=== PATIENT | male | born 1950 | race Hispanic/Latino ===

== ENCOUNTER 2022-05-20 09:16 | Inpatient (IN) | payer MEDICARE ==
[2022-05-20] MEDS ORDERED: LORazepam 2 MG/ML VIAL IV ONE (09:22)
[2022-05-20] MEDS ORDERED: SODIUM CHLORIDE 0.9% 1000 ML 1,000 ML IV ONE ×2 (10:06→13:23)
--- NOTE | 2022-05-20 10:12 | Emergency Department Report ---
ED Altered Mental Status HPI - General Chief Complaint: Altered Mental Status Stated Complaint: AMS Time Seen by Provider: 05/20/22 10:03 Source: EMS Mode of arrival: Stretcher Limitations: Altered Mental Status - History of Present Illness Initial Comments: Mr. Prieto was brought in by EMS with concern for altered mental status and likely seizure activity. EMS got a call that a friend find patient laying on the couch unresponsive. EMS notes it what is described as being seizure on presentation to the emergency room. Initially went to go to patient's home according to EMS he was trying to response to the question. Medication review noted that patient likely have history of high blood pressure taking lisinopril and also currently on trazodone. No other history is available at this point. MD Complaint: altered mental status - Related Data Allergies Allergy/AdvReac Type Severity Reaction Status Date / Time Unable to Assess Allergy Verified 05/20/22 09:22 ED Review of Systems ROS: Stated complaint: AMS Other details as noted in HPI Comment: All other systems reviewed and negative Neurological: confusion, other (Seizure) ED Physical Exam - General Limitations: Altered Mental Status General appearance: alert, in no apparent distress, postictal - Head Head exam: Present: normal inspection - Eye Eye exam: Present: normal appearance Pupils: Present: normal accommodation - ENT ENT exam: Present: normal exam, normal orophraynx, mucous membranes dry - Neck Neck exam: Present: normal inspection - Respiratory Respiratory exam: Present: normal lung sounds bilaterally. Absent: respiratory distress, accessory muscle use - Cardiovascular Cardiovascular Exam: Present: regular rate, normal rhythm, normal heart sounds - GI/Abdominal GI/Abdominal exam: Present: soft, normal bowel sounds. Absent: distended, tenderness - Extremities Exam Extremities exam: Present: normal inspection, normal capillary refill. Absent: tenderness, pedal edema - Back Exam Back exam: Absent: tenderness - Neurological Exam Neurological exam: Present: altered - Skin Skin exam: Present: warm. Absent: rash ED Course Vital Signs 05/20/22 05/20/22 05/20/22 09:19 09:30 09:35 Temperature 97.8 F Pulse Rate 80 81 Respiratory 16 13 15 Rate Blood Pressure Blood Pressure 110/72 [Right] O2 Sat by Pulse 97 96 97 Oximetry 05/20/22 05/20/22 05/20/22 09:41 09:45 10:01 Temperature Pulse Rate 65 64 59 L Respiratory 14 10 L Rate Blood Pressure 137/65 114/67 Blood Pressure [Right] O2 Sat by Pulse 99 99 Oximetry 05/20/22 05/20/22 05/20/22 10:15 10:31 10:45 Temperature Pulse Rate 60 55 L 67 Respiratory 12 10 L 14 Rate Blood Pressure 114/67 104/62 104/62 Blood Pressure [Right] O2 Sat by Pulse 99 99 98 Oximetry 05/20/22 05/20/22 05/20/22 11:07 11:15 11:31 Temperature Pulse Rate 53 L 60 50 L Respiratory 11 L 13 Rate Blood Pressure 104/62 104/62 110/53 Blood Pressure [Right] O2 Sat by Pulse Oximetry 05/20/22 05/20/22 05/20/22 11:45 12:01 12:15 Temperature Pulse Rate 49 L 48 L 48 L Respiratory 13 9 L 12 Rate Blood Pressure 110/53 113/54 113/54 Blood Pressure [Right] O2 Sat by Pulse Oximetry 05/20/22 05/20/22 05/20/22 12:31 12:45 13:01 Temperature Pulse Rate 48 L 57 L 63 Respiratory 12 8 L 10 L Rate Blood Pressure 116/56 116/56 116/56 Blood Pressure [Right] O2 Sat by Pulse 96 Oximetry 05/20/22 05/20/22 05/20/22 13:15 13:31 13:45 Temperature Pulse Rate 54 L 48 L 52 L Respiratory 12 12 14 Rate Blood Pressure 149/76 157/79 129/65 Blood Pressure [Right] O2 Sat by Pulse 99 100 100 Oximetry 05/20/22 14:01 Temperature Pulse Rate Respiratory 12 Rate Blood Pressure 148/74 Blood Pressure [Right] O2 Sat by Pulse Oximetry - Reevaluation(s) Reevaluation #1: 05/20/22 10:10 brought in with likely seizure or with AMS-- pt with very limited history -- evan l go ahead and order CT head to rule out intracranial abnormality--and order routine labs CBC, CMP and UA with lactic acid-- for any infectious or electrolytes abnormality- 05/20/22 10:31 05/20/22 10:33 Given 2 mg IM x 1 on presentation with like seizure but because this patient did not have history of seizure will hold given dilantin for stabilization until further labs resulted. Reevaluation #2: 05/20/22 13:19 Pt looks a little bit more alert at this time--He reports history of vertigo but no medication list. Reevaluation #3: 05/20/22 13:20 Noted with elevated lactic acid at 4.2 but no identified source of infection yet but UA still pending -- with concern for sepsis will start aggressive ivf hydration and antibiotics prophylactically--Van and Zosyn 05/20/22 13:21 Reevaluation #4: 05/20/22 13:46 Got a call from chemistry with improved Lactic acid from 4.1 not to 2.30 following that antibiotics and ivf ns -- will continue to look for likely source of infection as UA still pending at this point-- 05/20/22 14:02 Urinalysis noted to be within normal limits without urinary leukocytes or nitrates--this is likely not the source of infection if any--considering that this patient noticed with improvement after IV fluid hydration and antibiotics will consider admission to the hospitalist. Dr. Torres paged and was told that he would call back. - Consultations Consultation #1: 05/20/22 14:46 Dr Torres came in to the ED and evaluated patient and accept for further evaluation and treatment-- - Lab Data Result diagrams: 05/20/22 10:36 05/20/22 10:36 Lab Results 05/20/22 05/20/22 05/20/22 Range/Units 10:36 10:36 10:36 WBC 8.4 (4.5-11.0) K/mm3 RBC 3.65 (3.65-5.03) M/mm3 Hgb 12.1 (11.8-15.2) gm/dl Hct 35.6 (35.5-45.6) % MCV 98 H (84-94) fl MCH 33 H (28-32) pg MCHC 34 (32-34) % RDW 13.0 L (13.2-15.2) % Plt Count 79 L (140-440) K/mm3 Lymph % (Auto) 11.1 L (13.4-35.0) % [place] % (Auto) 4.6 (0.0-7.3) % Eos % (Auto) 2.5 (0.0-4.3) % Baso % (Auto) 0.7 (0.0-1.8) % Lymph # (Auto) 0.9 L (1.2-5.4) K/mm3 [place] # (Auto) 0.4 (0.0-0.8) K/mm3 Eos # (Auto) 0.2 (0.0-0.4) K/mm3 Baso # (Auto) 0.1 (0.0-0.1) K/mm3 Seg Neutrophils % 81.1 H (40.0-70.0) % Seg Neutrophils # 6.8 (1.8-7.7) K/mm3 PT 12.5 (12.2-14.9) Sec. INR 0.85 L (0.87-1.13) APTT 20.0 L (24.2-36.6) Sec. Sodium 135 L (137-145) mmol/L Potassium 4.0 (3.6-5.0) mmol/L Chloride 100.8 (98-107) mmol/L Carbon Dioxide 22 (22-30) mmol/L Anion Gap 16 mmol/L BUN 11 (9-20) mg/dL Creatinine 0.9 (0.8-1.3) mg/dL Estimated GFR > 60 ml/min BUN/Creatinine Ratio 12 % Glucose 112 H (75-100) mg/dL Lactic Acid (0.7-2.0) mmol/L Calcium 9.0 (8.4-10.2) mg/dL Total Bilirubin 0.30 (0.1-1.2) mg/dL AST 28 (5-40) units/L ALT 31 (7-56) units/L Alkaline Phosphatase 60 (35-129) units/L Total Protein 6.3 (6.3-8.2) g/dL Albumin 4.0 (3.9-5) g/dL Albumin/Globulin Ratio 1.7 % TSH (0.270-4.200) mlU/mL Free T4 (0.76-1.46) ng/dL Urine Color (Yellow) Urine Turbidity (Clear) Urine pH (5.0-7.0) Ur Specific [place] (1.003-1.030) Urine Protein (Negative) mg/dL Urine Glucose (UA) (Negative) mg/dL Urine Ketones (Negative) mg/dL Urine Blood (Negative) Urine Nitrite (Negative) Urine Bilirubin (Negative) Urine Urobilinogen (<2.0) mg/dL Ur Leukocyte Esterase (Negative) Urine WBC (Auto) (0.0-6.0) /HPF Urine RBC (Auto) (0.0-6.0) /HPF U Epithel Cells (Auto) (0-13.0) /HPF 05/20/22 05/20/22 05/20/22 Range/Units 10:36 10:36 12:52 WBC (4.5-11.0) K/mm3 RBC (3.65-5.03) M/mm3 Hgb (11.8-15.2) gm/dl Hct (35.5-45.6) % MCV (84-94) fl MCH (28-32) pg MCHC (32-34) % RDW (13.2-15.2) % Plt Count (140-440) K/mm3 Lymph % (Auto) (13.4-35.0) % [place] % (Auto) (0.0-7.3) % Eos % (Auto) (0.0-4.3) % Baso % (Auto) (0.0-1.8) % Lymph # (Auto) (1.2-5.4) K/mm3 [place] # (Auto) (0.0-0.8) K/mm3 Eos # (Auto) (0.0-0.4) K/mm3 Baso # (Auto) (0.0-0.1) K/mm3 Seg Neutrophils % (40.0-70.0) % Seg Neutrophils # (1.8-7.7) K/mm3 PT (12.2-14.9) Sec. INR (0.87-1.13) APTT (24.2-36.6) Sec. Sodium (137-145) mmol/L Potassium (3.6-5.0) mmol/L Chloride (98-107) mmol/L Carbon Dioxide (22-30) mmol/L Anion Gap mmol/L BUN (9-20) mg/dL Creatinine (0.8-1.3) mg/dL Estimated GFR ml/min BUN/Creatinine Ratio % Glucose (75-100) mg/dL Lactic Acid 4.10 H* 2.30 H* (0.7-2.0) mmol/L Calcium (8.4-10.2) mg/dL Total Bilirubin (0.1-1.2) mg/dL AST (5-40) units/L ALT (7-56) units/L Alkaline Phosphatase (35-129) units/L Total Protein (6.3-8.2) g/dL Albumin (3.9-5) g/dL Albumin/Globulin Ratio % TSH 2.440 (0.270-4.200) mlU/mL Free T4 1.19 (0.76-1.46) ng/dL Urine Color (Yellow) Urine Turbidity (Clear) Urine pH (5.0-7.0) Ur Specific [place] (1.003-1.030) Urine Protein (Negative) mg/dL Urine Glucose (UA) (Negative) mg/dL Urine Ketones (Negative) mg/dL Urine Blood (Negative) Urine Nitrite (Negative) Urine Bilirubin (Negative) Urine Urobilinogen (<2.0) mg/dL Ur Leukocyte Esterase (Negative) Urine WBC (Auto) (0.0-6.0) /HPF Urine RBC (Auto) (0.0-6.0) /HPF U Epithel Cells (Auto) (0-13.0) /HPF / Range/Units 13:39 WBC (4.5-11.0) K/mm3 RBC (3.65-5.03) M/mm3 Hgb (11.8-15.2) gm/dl Hct (35.5-45.6) % MCV (84-94) fl MCH (28-32) pg MCHC (32-34) % RDW (13.2-15.2) % Plt Count (140-440) K/mm3 Lymph % (Auto) (13.4-35.0) % [place] % (Auto) (0.0-7.3) % Eos % (Auto) (0.0-4.3) % Baso % (Auto) (0.0-1.8) % Lymph # (Auto) (1.2-5.4) K/mm3 [place] # (Auto) (0.0-0.8) K/mm3 Eos # (Auto) (0.0-0.4) K/mm3 Baso # (Auto) (0.0-0.1) K/mm3 Seg Neutrophils % (40.0-70.0) % Seg Neutrophils # (1.8-7.7) K/mm3 PT (12.2-14.9) Sec. INR (0.87-1.13) APTT (24.2-36.6) Sec. Sodium (137-145) mmol/L Potassium (3.6-5.0) mmol/L Chloride (98-107) mmol/L Carbon Dioxide (22-30) mmol/L Anion Gap mmol/L BUN (9-20) mg/dL Creatinine (0.8-1.3) mg/dL Estimated GFR ml/min BUN/Creatinine Ratio % Glucose (75-100) mg/dL Lactic Acid (0.7-2.0) mmol/L Calcium (8.4-10.2) mg/dL Total Bilirubin (0.1-1.2) mg/dL AST (5-40) units/L ALT (7-56) units/L Alkaline Phosphatase (35-129) units/L Total Protein (6.3-8.2) g/dL Albumin (3.9-5) g/dL Albumin/Globulin Ratio % TSH (0.270-4.200) mlU/mL Free T4 (0.76-1.46) ng/dL Urine Color Yellow (Yellow) Urine Turbidity Clear (Clear) Urine pH 7.0 (5.0-7.0) Ur Specific [place] 1.013 (1.003-1.030) Urine Protein 30 mg/dl (Negative) mg/dL Urine Glucose (UA) Neg (Negative) mg/dL Urine Ketones Neg (Negative) mg/dL Urine Blood Neg (Negative) Urine Nitrite Neg (Negative) Urine Bilirubin Neg (Negative) Urine Urobilinogen < 2.0 (<2.0) mg/dL Ur Leukocyte Esterase Neg (Negative) Urine WBC (Auto) 1.0 (0.0-6.0) /HPF Urine RBC (Auto) < 1.0 (0.0-6.0) /HPF U Epithel Cells (Auto) < 1.0 (0-13.0) /HPF - EKG Data -: EKG Interpreted by Oh EKG shows normal: sinus rhythm Rate: normal 05/20/22 10:35 Noted with normal sinus rhythm at a rate of 72 bpm, with possible LVH and no ST elevation or depression in this abnormal ECG. - Radiology Data CT HEAD WITHOUT CONTRAST INDICATION / CLINICAL INFORMATION: AMS/seizure. TECHNIQUE: All CT scans at this location are performed using CT dose reduction for ALARA by means of automated exposure control. COMPARISON: None available. FINDINGS: HEMORRHAGE: None. EXTRA-AXIAL SPACES: Moderately prominent likely related to cortical atrophy. VENTRICULAR SYSTEM: Normal in size and morphology for the patient's age. CEREBRAL PARENCHYMA: No significant abnormality. No acute territorial infarct. There is decreased attenuation in the periventricular white matter characteristic of microvascular ischemic change. MIDLINE SHIFT / HERNIATION: None. CEREBELLUM / BRAINSTEM: No significant abnormality. ORBITS: Normal as visualized. SOFT TISSUES: No significant abnormality. SKULL: No significant abnormality. PARANASAL SINUSES / MASTOID AIR CELLS: Normal as visualized. ADDITIONAL FINDINGS: None. IMPRESSION: 1. No acute intracranial abnormality. No intracranial hemorrhage. - Medical Decision Making Here with AMS with limited - Differential Diagnosis CVA, Seizure, Sepsis, UTI, Pneumonia Critical Care Time: Yes (120) Critical care time in (mins) excluding proc time.: 120 Critical care attestation.: If time is entered above; I have spent that time in minutes in the direct care of this critically ill patient, excluding procedure time. This patient brought in with AMS and with possible seizure and due to high probability of clinically significant, life threatening deterioration, this patient required my highest level of preparedness to intervene emergently and I personally spent this critical care time directly and personally managing this patient. This critical care time included obtaining a history; examining this patient; pulse oximetry ; ordering and review of studies ; arranging urgent treatment with development of a management plan ; evaluation of patient's response to treatment ; frequent reassessment ; and, discussion with other providers. This critical care time was performed to assess and manage the high probability of imminent, life-threatening deterioration that could result in multiple organ damage if not done in a timely fashion. pt started with prophylactic antibiotics with aggressive IV fluids for possible sepsis-- Critical Care Time: 120 ED Disposition Clinical Impression: Seizure AMS (altered mental status) Qualifiers: Altered mental status type: unspecified Qualified Code(s): R41.82 - Altered mental status, unspecified Sepsis Qualifiers: Sepsis type: sepsis due to unspecified organism Sepsis acute organ dysfunction status: unspecified Qualified Code(s): A41.9 - Sepsis, unspecified organism Disposition: 09 ADMITTED INPATIENT Is pt being admited?: Yes Does the pt Need Aspirin: No Condition: Stable Time of Disposition: 14:48 (Dr Torres )
[2022-05-20 11:16] LABS: Basophils # (Auto) 0.1 K/mm3 (0.0-0.1); Basophils % (Auto) 0.7 % (0.0-1.8); Eosinophils # (Auto) 0.2 K/mm3 (0.0-0.4); Eosinophils % (Auto) 2.5 % (0.0-4.3); Hematocrit 35.6 % (35.5-45.6); Hemoglobin 12.1 gm/dl (11.8-15.2); Lymphocytes # (Auto) 0.9 K/mm3 (1.2-5.4); Lymphocytes % (Auto) 11.1 % (13.4-35.0); Mean Corpuscular HGB Conc 34 % (32-34); Mean Corpuscular Volume 98 fl (84-94); Monocytes # (Auto) 0.4 K/mm3 (0.0-0.8); Monocytes % (Auto) 4.6 % (0.0-7.3); Red Blood Count 3.65 M/mm3 (3.65-5.03)
[2022-05-20 11:25] LABS: Alanine Aminotransferase 31 units/L (7-56); BUN/Creatinine Ratio 12; Blood Urea Nitrogen 11 mg/dL (9-20); Hemolysis Index 52; INR 0.85 (0.87-1.13)
[2022-05-20 11:42] LABS: Platelet Count 79 K/mm3 (140-440)
--- NOTE | 2022-05-20 11:42 | Cat Scan Report ---
CT HEAD WITHOUT CONTRAST INDICATION / CLINICAL INFORMATION: AMS/seizure. TECHNIQUE: All CT scans at this location are performed using CT dose reduction for ALARA by means of automated exposure control. COMPARISON: None available. FINDINGS: HEMORRHAGE: None. EXTRA-AXIAL SPACES: Moderately prominent likely related to cortical atrophy. VENTRICULAR SYSTEM: Normal in size and morphology for the patient's age. CEREBRAL PARENCHYMA: No significant abnormality. No acute territorial infarct. There is decreased att enuation in the periventricular white matter characteristic of microvascular ischemic change. MIDLINE SHIFT / HERNIATION: None. CEREBELLUM / BRAINSTEM: No significant abnormality. ORBITS: Normal as visualized. SOFT TISSUES: No significant abnormality. SKULL: No significant abnormality. PARANASAL SINUSES / MASTOID AIR CELLS: Normal as visualized. ADDITIONAL FINDINGS: None. IMPRESSION: 1. No acute intracranial abnormality. No intracranial hemorrhage. Signer Name: Jj Schaeffer MD Signed: 05/20/2022 11:38 AM Workstation Name: [id number]
[2022-05-20 12:07] LABS: Free T4 (Free Thyroxine) 1.19 ng/dL (0.76-1.46)
[2022-05-20] MEDS ORDERED: VANCOMYCIN/NS 1 GM/250 ML 1 GM/250 ML BAG IV ONE (13:22)
[2022-05-20] MEDS ORDERED: PIPERACILLIN/TAZOBACTAM 3.375 3.375 GM/50 ML BAG IV ONE (13:23)
[2022-05-20 13:50] LABS: Bilirubin,Urine NEG (Negative); Blood,Urine NEG (Negative); Color,Urine Yellow (Yellow); Urobilinogen,Urine < 2.0 mg/dL (<2.0)
[2022-05-20 13:51] LABS: RBC,Urine < 1.0 /HPF (0.0-6.0)
[2022-05-20] MEDS ORDERED: ACETAMINOPHEN 325 MG TAB PO PRN (17:43)
[2022-05-20] MEDS ORDERED: ONDANSETRON 4 MG/2 ML INJ IV PRN (17:43)
[2022-05-20] MEDS ORDERED: MORPHINE 2 MG/1 ML INJ IV PRN (17:43)
--- NOTE | 2022-05-20 17:43 | History and Physical Report ---
History of Present Illness Date of examination: 05/20/22 Date of admission: 05/20/2022 Chief complaint: Seizures and altered mental status since a.m. History of present illness: 72-year-old male brought in by EMS for altered mental status and seizure-like activity. Patient is from [facility]. Patient has an ankle for the last 3 months for treatment of EtOH dependence. Patient has been alcohol free for 4 months. From a.m. patient has been very confused and having seizure-like activity. Generalized tonic-clonic seizures. Patient was with altered sensorium during ED physician exam. During my exam patient was more alert and oriented and able to answer questions. Patient gave me his medication bottles and history. No prior seizures. No fever or chills. Initially patient was admitted as a Jonny Ramirez. Later on registration changed his name and date of and his address etc. Past History Past Medical History: hypertension, hyperlipidemia, other (Depression, EtOH dependence) Past Surgical History: No surgical history Social history: Lives alone (Lives in [facility]), other (EtOH dependence ~4 months ago) Family history: hypertension Medications and Allergies Allergies Allergy/AdvReac Type Severity Reaction Status Date / Time Unable to Assess Allergy Verified 05/20/22 09:22 Review of Systems All systems: negative Constitutional: no weight loss, no weight gain, no fever, no chills Ears, nose, mouth and throat: no ear pain, no ear discharge, no tinnitis, no decreased hearing Cardiovascular: no chest pain, no orthopnea, no palpitations, no rapid/irregular heart beat, no edema, no syncope, no lightheadedness, no shortness of breath Respiratory: no cough, no cough with sputum, no excessive sputum, no hemoptysis, no shortness of breath, no dyspnea on exertion Gastrointestinal: no abdominal pain, no nausea, no vomiting, no diarrhea, no constipation, no change in bowel habits, no hematemesis, no coffee ground emesis Genitourinary Male: no dysuria, no hematuria, no flank pain, no discharge, no urinary frequency, no urinary hesitancy Rectal: no pain Musculoskeletal: no neck stiffness, no neck pain, no shooting arm pain, no arm numbness/tingling, no low back pain, no shooting leg pain Integumentary: no rash, no pruritis, no redness, no sores Neurological: seizures Psychiatric: anxiety, depression, no change in appetite, no change in libido, no suicidal ideation, no disorientation, no hallucinations Endocrine: no cold intolerance, no heat intolerance, no polyphagia, no excessive thirst Hematologic/Lymphatic: no easy bruising, no easy bleeding Allergic/Immunologic: no urticaria, no allergic rhinitis, no wheezing Exam - Constitutional Vitals: Temp Pulse Resp BP Pulse Ox 97.8 F 52 L 11 L 111/62 97 05/20/22 09:19 05/20/22 13:45 05/20/22 15:01 05/20/22 15:01 05/20/22 15:01 General appearance: Present: no acute distress, well-nourished - EENT Eyes: Present: PERRL ENT: hearing intact, clear oral mucosa - Neck Neck: Present: supple, normal ROM - Respiratory Respiratory effort: normal Respiratory: bilateral: CTA - Cardiovascular Heart rate: 78 Rhythm: regular Heart Sounds: Present: S1 & S2. Absent: rub, click - Extremities Extremities: pulses symmetrical, No edema Peripheral Pulses: within normal limits - Abdominal General gastrointestinal: Present: soft, non-tender, non-distended, normal bowel sounds Male genitourinary: Present: normal - Integumentary Integumentary: Present: clear, warm, dry - Musculoskeletal Musculoskeletal: gait normal, strength equal bilaterally - Psychiatric Psychiatric: appropriate mood/affect, intact judgment & insight - Neurologic Neurologic: CNII-XII intact, moves all extremities HEART Score - HEART Score History: Slightly suspicious Risk factors: 1-2 risk factors Troponin: < normal limit - Critical Actions Critical Actions: 0-3 pts:0.9-1.7%risk of adverse cardiac event.Candidate for discharge Results - Labs CBC & Chem 7: 05/21/22 05:18 05/21/22 05:18 Labs: Laboratory Last Values WBC 8.4 K/mm3 (4.5-11.0) 05/20/22 10:36 RBC 3.65 M/mm3 (3.65-5.03) 05/20/22 10:36 Hgb 12.1 gm/dl (11.8-15.2) 05/20/22 10:36 Hct 35.6 % (35.5-45.6) 05/20/22 10:36 MCV 98 fl (84-94) H 05/20/22 10:36 MCH 33 pg (28-32) H 05/20/22 10:36 MCHC 34 % (32-34) 05/20/22 10:36 RDW 13.0 % (13.2-15.2) L 05/20/22 10:36 Plt Count 79 K/mm3 (140-440) L 05/20/22 10:36 Lymph % (Auto) 11.1 % (13.4-35.0) L 05/20/22 10:36 [place] % (Auto) 4.6 % (0.0-7.3) 05/20/22 10:36 Eos % (Auto) 2.5 % (0.0-4.3) 05/20/22 10:36 Baso % (Auto) 0.7 % (0.0-1.8) 05/20/22 10:36 Lymph # (Auto) 0.9 K/mm3 (1.2-5.4) L 05/20/22 10:36 [place] # (Auto) 0.4 K/mm3 (0.0-0.8) 05/20/22 10:36 Eos # (Auto) 0.2 K/mm3 (0.0-0.4) 05/20/22 10:36 Baso # (Auto) 0.1 K/mm3 (0.0-0.1) 05/20/22 10:36 Seg Neutrophils % 81.1 % (40.0-70.0) H 05/20/22 10:36 Seg Neutrophils # 6.8 K/mm3 (1.8-7.7) 05/20/22 10:36 PT 12.5 Sec. (12.2-14.9) 05/20/22 10:36 INR 0.85 (0.87-1.13) L 05/20/22 10:36 APTT 20.0 Sec. (24.2-36.6) L 05/20/22 10:36 Sodium 135 mmol/L (137-145) L 05/20/22 10:36 Potassium 4.0 mmol/L (3.6-5.0) 05/20/22 10:36 Chloride 100.8 mmol/L (98-107) 05/20/22 10:36 Carbon Dioxide 22 mmol/L (22-30) 05/20/22 10:36 Anion Gap 16 mmol/L 05/20/22 10:36 BUN 11 mg/dL (9-20) 05/20/22 10:36 Creatinine 0.9 mg/dL (0.8-1.3) 05/20/22 10:36 Estimated GFR > 60 ml/min 05/20/22 10:36 BUN/Creatinine Ratio 12 % 05/20/22 10:36 Glucose 112 mg/dL (75-100) H 05/20/22 10:36 Lactic Acid 2.30 mmol/L (0.7-2.0) H* 05/20/22 12:52 Calcium 9.0 mg/dL (8.4-10.2) 05/20/22 10:36 Total Bilirubin 0.30 mg/dL (0.1-1.2) 05/20/22 10:36 AST 28 units/L (5-40) 05/20/22 10:36 ALT 31 units/L (7-56) 05/20/22 10:36 Alkaline Phosphatase 60 units/L (35-129) 05/20/22 10:36 Total Protein 6.3 g/dL (6.3-8.2) 05/20/22 10:36 Albumin 4.0 g/dL (3.9-5) 05/20/22 10:36 Albumin/Globulin Ratio 1.7 % 05/20/22 10:36 TSH 2.440 mlU/mL (0.270-4.200) 05/20/22 10:36 Free T4 1.19 ng/dL (0.76-1.46) 05/20/22 10:36 Urine Color Yellow (Yellow) 05/20/22 13:39 Urine Turbidity Clear (Clear) 05/20/22 13:39 Urine pH 7.0 (5.0-7.0) 05/20/22 13:39 Ur Specific [place] 1.013 (1.003-1.030) 05/20/22 13:39 Urine Protein 30 mg/dl mg/dL (Negative) 05/20/22 13:39 Urine Glucose (UA) Neg mg/dL (Negative) 05/20/22 13:39 Urine Ketones Neg mg/dL (Negative) 05/20/22 13:39 Urine Blood Neg (Negative) 05/20/22 13:39 Urine Nitrite Neg (Negative) 05/20/22 13:39 Urine Bilirubin Neg (Negative) 05/20/22 13:39 Urine Urobilinogen < 2.0 mg/dL (<2.0) 05/20/22 13:39 Ur Leukocyte Esterase Neg (Negative) 05/20/22 13:39 Urine WBC (Auto) 1.0 /HPF (0.0-6.0) 05/20/22 13:39 Urine RBC (Auto) < 1.0 /HPF (0.0-6.0) 05/20/22 13:39 U Epithel Cells (Auto) < 1.0 /HPF (0-13.0) 05/20/22 13:39 Short CBC 05/20/22 05/21/22 Range/Units 10:36 05:18 WBC 8.4 10.7 (4.5-11.0) K/mm3 Hgb 12.1 13.3 (11.8-15.2) gm/dl Hct 35.6 40.1 (35.5-45.6) % Plt Count 79 L 181 D (140-440) K/mm3 BMP 05/20/22 05/21/22 10:36 05:18 Sodium 135 L 142 D Potassium 4.0 3.7 Chloride 100.8 108.0 H Carbon Dioxide 22 22 BUN 11 9 Creatinine 0.9 0.7 L Glucose 112 H 122 H Calcium 9.0 8.9 Liver Function 05/20/22 05/21/22 Range/Units 10:36 05:18 Total Bilirubin 0.30 0.50 (0.1-1.2) mg/dL AST 28 22 (5-40) units/L ALT 31 25 (7-56) units/L Alkaline Phosphatase 60 61 (35-129) units/L Albumin 4.0 3.8 L (3.9-5) g/dL Urine 05/20/22 Range/Units 13:39 Urine Color Yellow (Yellow) Urine pH 7.0 (5.0-7.0) Ur Specific [place] 1.013 (1.003-1.030) Urine Protein 30 mg/dl (Negative) mg/dL Urine Glucose (UA) Neg (Negative) mg/dL - Imaging and Cardiology CT Scan - head: report reviewed Imaging and Cardiology: Head CT No acute intracranial abnormality no intracranial hemorrhage Assessment and Plan Advance Directives: Yes (Full code) VTE prophylaxis?: Chemical Plan of care discussed with patient/family: Yes - Patient Problems (1) Acute encephalopathy Current Visit: Yes Status: Acute Plan to address problem: Secondary to possible generalized tonic clonic seizures IV Keppra started Patient became more alert and oriented over the last 6 hours Neurology consult requested (2) New onset seizure Current Visit: Yes Status: Acute Plan to address problem: Patient initiated on IV Keppra (3) EtOH dependence Current Visit: Yes Status: Acute Qualifiers: Substance use status: in remission Qualified Code(s): F10.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, in remission Plan to address problem: Patient apparently off alcohol for 4 months Will start CIWA protocol if necessary (4) Hypertension Current Visit: Yes Status: Chronic Qualifiers: Hypertension type: primary hypertension Qualified Code(s): I10 - Essential (primary) hypertension Plan to address problem: Continue lisinopril 20 mg once a day (5) Hyperlipidemia Current Visit: Yes Status: Chronic Qualifiers: Hyperlipidemia type: mixed hyperlipidemia Qualified Code(s): E78.2 - Mixed hyperlipidemia Plan to address problem: Continuous Lipitor (6) Depression Current Visit: Yes Status: Chronic Qualifiers: Depression Type: unspecified Qualified Code(s): F32.A - Depression, unspecified Plan to address problem: Continue trazodone (7) DVT prophylaxis Current Visit: Yes Status: Acute Plan to address problem: On anticoagulation GI prophylaxis (8) Advance care planning Current Visit: Yes Status: Acute Plan to address problem: Disease education conducted, care plan discussed, palpable diagnosis discussed prognosis discussed and patient acknowledged understanding with care plan. +30 minutes.
[2022-05-20] MEDS: D5W/0.9% NACL 1,000 ML IV SCH (18:21)
[2022-05-20] MEDS: levETIRAcetam 750 MG in DEXTROSE 5% IN WATER 100 ML IV SCH (19:36)
[2022-05-20] MEDS: LISINOPRIL 20 MG TAB PO SCH (19:36)
[2022-05-20] MEDS: FOLIC ACID 1 MG TAB PO SCH (19:36)
[2022-05-21] MEDS: levETIRAcetam 750 MG in DEXTROSE 5% IN WATER 100 ML IV SCH ×3 (00:06→22:04)
[2022-05-21] MEDS: D5W/0.9% NACL 1,000 ML IV SCH ×2 (00:15→17:28)
[2022-05-21] MEDS: traZODone 50 MG TAB PO SCH ×2 (00:16→21:57)
[2022-05-21] MEDS: HEPARIN 5,000 UNIT/1 ML VIAL SUB-Q SCH ×3 (00:16→21:58)
[2022-05-21] MEDS: FAMOTIDINE 20 MG/2 ML INJ IV SCH ×2 (00:17→10:10)
[2022-05-21 06:05] LABS: Basophils # (Auto) 0.1 K/mm3 (0.0-0.1); Basophils % (Auto) 1.1 % (0.0-1.8); Eosinophils # (Auto) 0.3 K/mm3 (0.0-0.4); Eosinophils % (Auto) 2.8 % (0.0-4.3); Hematocrit 40.1 % (35.5-45.6); Hemoglobin 13.3 gm/dl (11.8-15.2); Lymphocytes # (Auto) 1.7 K/mm3 (1.2-5.4); Lymphocytes % (Auto) 15.8 % (13.4-35.0); Mean Corpuscular HGB Conc 33 % (32-34); Mean Corpuscular Volume 98 fl (84-94); Monocytes # (Auto) 0.5 K/mm3 (0.0-0.8); Monocytes % (Auto) 4.8 % (0.0-7.3); Red Blood Count 4.08 M/mm3 (3.65-5.03)
[2022-05-21 06:29] LABS: Alanine Aminotransferase 25 units/L (7-56); Albumin 3.8 g/dL (3.9-5); Blood Urea Nitrogen 9 mg/dL (9-20); Calcium 8.9 mg/dL (8.4-10.2); Hemolysis Index 58
[2022-05-21 06:30] LABS: BUN/Creatinine Ratio 13
[2022-05-21 06:31] LABS: Platelet Count 181 K/mm3 (140-440)
[2022-05-21] MEDS: FOLIC ACID 1 MG TAB PO SCH (10:10)
--- NOTE | 2022-05-21 16:21 | Consultation ---
History of Present Illness Consult date: 05/21/22 Reason for Consult: Blank History of present illness: Mr. Prieto was brought in by EMS with concern for altered mental status and likely seizure activity. EMS got a call that a friend find patient laying on the couch unresponsive. EMS notes it what is described as being seizure on presentation to the emergency room. Initially went to go to patient's home according to EMS he was trying to response to the question. Medication review n oted that patient likely have history of high blood pressure taking lisinopril and also currently on trazodone. No other history is available at this point. The patient is alert , the patient reports no issues. Past History Past Medical History: hypertension, hyperlipidemia, other (Depression, EtOH dependence) Past Surgical History: No surgical history Social history: Lives alone (Lives in [place] [facility]), other (EtOH dependence ~4 months ago) Family history: hypertension Medications and Allergies Allergies Allergy/AdvReac Type Severity Reaction Status Date / Time Unable to Assess Allergy Verified 05/20/22 09:22 Active Meds: Active Medications Acetaminophen (Acetaminophen 325 Mg Tab) 650 mg PO Q4H PRN PRN Reason: Pain MILD(1-3)/Fever >100.5/FINE Atorvastatin Calcium (Atorvastatin 40 Mg Tab) 40 mg PO QHS [facility] Last Admin: 05/21/22 00:16 Dose: 40 mg Famotidine (Famotidine 20 Mg Tab) 20 mg PO BID [place] Folic Acid (Folic Acid 1 Mg Tab) 1 mg PO QDAY [facility] Last Admin: 05/21/22 10:10 Dose: 1 mg Heparin Sodium (Porcine) (Heparin 5,000 Unit/1 Ml Vial) 5,000 unit SUB-Q Q12HR [place] Last Admin: 05/21/22 10:10 Dose: 5,000 unit Dextrose/Sodium Chloride (D5ns) 1,000 mls @ 100 mls/hr IV DIRECT [facility] Last Admin: 05/21/22 00:15 Dose: 100 mls/hr Levetiracetam 750 mg/ Dextrose 107.5 mls @ 400 mls/hr IV Q12HR [place] Last Admin: 05/21/22 10:11 Dose: 400 mls/hr Lisinopril (Lisinopril 20 Mg Tab) 20 mg PO Q24H [facility] Last Admin: 05/20/22 19:36 Dose: 20 mg Morphine Sulfate (Morphine 2 Mg/1 Ml Inj) 2 mg IV Q4H PRN PRN Reason: Pain, Moderate (4-6) Last Admin: 05/20/22 18:22 Dose: 2 mg Ondansetron HCl (Ondansetron 4 Mg/2 Ml Inj) 4 mg IV Q8H PRN PRN Reason: Nausea And Vomiting Sodium Chloride (Sodium Chloride 0.9% 10 Ml Flush Syringe) 10 ml IV BID [facility] Last Admin: 05/21/22 10:13 Dose: 10 ml Sodium Chloride (Sodium Chloride 0.9% 10 Ml Flush Syringe) 10 ml IV PRN PRN PRN Reason: LINE FLUSH Trazodone HCl (Trazodone 50 Mg Tab) 100 mg PO QHS [facility] Last Admin: 05/21/22 00:16 Dose: 100 mg Physical Examination - Vital Signs Vital Signs: Vital Signs Temp Pulse Resp BP Pulse Ox 97.8 F 80 16 110/72 97 05/20/22 09:19 05/20/22 09:19 05/20/22 09:19 05/20/22 09:19 05/20/22 09:19 - Physical Exam Narrative exam: The patient is alert , responsives seem that the patient is confused, moves all 4 extremity . Results - Laboratory Findings CBC and BMP: 05/21/22 05:18 05/21/22 05:18 Abnormal Lab Findings: Abnormal Labs 05/20/22 05/20/22 05/20/22 10:36 10:36 10:36 MCV 98 H MCH 33 H RDW 13.0 L Plt Count 79 L Lymph % (Auto) 11.1 L Lymph # (Auto) 0.9 L Seg Neutrophils % 81.1 H Seg Neutrophils # INR 0.85 L APTT 20.0 L Sodium 135 L Chloride Creatinine Glucose 112 H Lactic Acid Albumin 05/20/22 05/20/22 05/21/22 10:36 12:52 05:18 MCV 98 H MCH 33 H RDW 13.0 L Plt Count Lymph % (Auto) Lymph # (Auto) Seg Neutrophils % 75.5 H Seg Neutrophils # 8.1 H INR APTT Sodium Chloride Creatinine Glucose Lactic Acid 4.10 H* 2.30 H* Albumin 05/21/22 05:18 MCV MCH RDW Plt Count Lymph % (Auto) Lymph # (Auto) Seg Neutrophils % Seg Neutrophils # INR APTT Sodium Chloride 108.0 H Creatinine 0.7 L Glucose 122 H Lactic Acid Albumin 3.8 L Assessment and Plan 1. ? New Onset Seizure / Acute Confusional State - Needs Further Evaluation . 2. MRI Brain no contrast 3. EEG in hospital 4. Consider Low Dose Keppra 250 mg 1 tab BID . 5. No driving for 6 months . Follow up in am Dr. Deluna
[2022-05-21] MEDS: LISINOPRIL 20 MG TAB PO SCH (17:28)
--- NOTE | 2022-05-21 19:28 | Progress Note ---
Assessment and Plan Assessment and plan: Advance Directives: Yes (Full code) VTE prophylaxis?: Chemical Plan of care discussed with patient/family: Yes - Patient Problems (1) Acute encephalopathy Secondary to possible generalized tonic clonic seizures IV Keppra started Patient became more alert and oriented over the last 6 hours Neurology consult requested (2) New onset seizure Patient initiated on IV Keppra Seizure precautions, MRI brain, EEG Do not drive until cleared by neurology or primary care physician Partly probably alcohol related (3) EtOH dependence Patient apparently off alcohol for 4 months Will start CIWA protocol if necessary (4) Hypertension Continue lisinopril 20 mg once a day (5) Hyperlipidemia Continuous Lipitor (6) Depression Continue trazodone (7) DVT prophylaxis On anticoagulation GI prophylaxis (8) Advance care planning Disease education conducted, care plan discussed, palpable diagnosis discussed prognosis discussed and patient acknowledged understanding with care plan. +30 minutes. Closely monitor the patient and adjust the management as needed Follow neuro evaluation and recommendations Follow EEG and MRI Physical therapy and Occupational Therapy Possible placement if no improvement Plan of care reviewed with the patient his nurse and case management History Interval history: Have seen and examined the patient at the bedside Patient's chart and medications reviewed Patient was admitted with altered level of consciousness and seizure episode Patient did not have any new episodes of seizures However patient is more alert and awake and confused at times Vital signs noted CT head without contrast no acute abnormality Hospitalist Physical - Constitutional Vitals: Temp Pulse Resp BP Pulse Ox 97 F L 56 L 20 144/71 98 05/21/22 18:36 05/21/22 18:36 05/21/22 18:36 05/21/22 18:36 05/21/22 18:36 General appearance: Present: no acute distress, well-nourished - EENT Eyes: Present: PERRL, EOM intact - Neck Neck: Present: supple, normal ROM - Respiratory Respiratory effort: normal Respiratory: bilateral: diminished, negative: rales, rhonchi, wheezing - Cardiovascular Rhythm: regular Heart Sounds: Present: S1 & S2 - Extremities Extremities: no ischemia, No edema - Abdominal General gastrointestinal: soft, non-tender, non-distended, normal bowel sounds - Integumentary Integumentary: Present: clear, warm - Psychiatric Psychiatric: appropriate mood/affect, cooperative - Neurologic Neurologic: moves all extremities HEART Score - HEART Score Risk factors: 1-2 risk factors Troponin: < normal limit - Critical Actions Critical Actions: 0-3 pts:0.9-1.7%risk of adverse cardiac event.Candidate for discharge Results - Labs CBC & Chem 7: 05/21/22 05:18 05/21/22 05:18 Labs: Laboratory Last Values WBC 10.7 K/mm3 (4.5-11.0) 05/21/22 05:18 RBC 4.08 M/mm3 (3.65-5.03) 05/21/22 05:18 Hgb 13.3 gm/dl (11.8-15.2) 05/21/22 05:18 Hct 40.1 % (35.5-45.6) 05/21/22 05:18 MCV 98 fl (84-94) H 05/21/22 05:18 MCH 33 pg (28-32) H 05/21/22 05:18 MCHC 33 % (32-34) 05/21/22 05:18 RDW 13.0 % (13.2-15.2) L 05/21/22 05:18 Plt Count 181 K/mm3 (140-440) D 05/21/22 05:18 Lymph % (Auto) 15.8 % (13.4-35.0) 05/21/22 05:18 [place] % (Auto) 4.8 % (0.0-7.3) 05/21/22 05:18 Eos % (Auto) 2.8 % (0.0-4.3) 05/21/22 05:18 Baso % (Auto) 1.1 % (0.0-1.8) 05/21/22 05:18 Lymph # (Auto) 1.7 K/mm3 (1.2-5.4) 05/21/22 05:18 [place] # (Auto) 0.5 K/mm3 (0.0-0.8) 05/21/22 05:18 Eos # (Auto) 0.3 K/mm3 (0.0-0.4) 05/21/22 05:18 Baso # (Auto) 0.1 K/mm3 (0.0-0.1) 05/21/22 05:18 Seg Neutrophils % 75.5 % (40.0-70.0) H 05/21/22 05:18 Seg Neutrophils # 8.1 K/mm3 (1.8-7.7) H 05/21/22 05:18 PT 12.5 Sec. (12.2-14.9) 05/20/22 10:36 INR 0.85 (0.87-1.13) L 05/20/22 10:36 APTT 20.0 Sec. (24.2-36.6) L 05/20/22 10:36 Sodium 142 mmol/L (137-145) D 05/21/22 05:18 Potassium 3.7 mmol/L (3.6-5.0) 05/21/22 05:18 Chloride 108.0 mmol/L (98-107) H 05/21/22 05:18 Carbon Dioxide 22 mmol/L (22-30) 05/21/22 05:18 Anion Gap 16 mmol/L 05/21/22 05:18 BUN 9 mg/dL (9-20) 05/21/22 05:18 Creatinine 0.7 mg/dL (0.8-1.3) L 05/21/22 05:18 Estimated GFR > 60 ml/min 05/21/22 05:18 BUN/Creatinine Ratio 13 % 05/21/22 05:18 Glucose 122 mg/dL (75-100) H 05/21/22 05:18 Lactic Acid 1.70 mmol/L (0.7-2.0) 05/20/22 17:24 Calcium 8.9 mg/dL (8.4-10.2) 05/21/22 05:18 Total Bilirubin 0.50 mg/dL (0.1-1.2) 05/21/22 05:18 AST 22 units/L (5-40) 05/21/22 05:18 ALT 25 units/L (7-56) 05/21/22 05:18 Alkaline Phosphatase 61 units/L (35-129) 05/21/22 05:18 Total Protein 6.4 g/dL (6.3-8.2) 05/21/22 05:18 Albumin 3.8 g/dL (3.9-5) L 05/21/22 05:18 Albumin/Globulin Ratio 1.5 % 05/21/22 05:18 TSH 2.440 mlU/mL (0.270-4.200) 05/20/22 10:36 Free T4 1.19 ng/dL (0.76-1.46) 05/20/22 10:36 Urine Color Yellow (Yellow) 05/20/22 13:39 Urine Turbidity Clear (Clear) 05/20/22 13:39 Urine pH 7.0 (5.0-7.0) 05/20/22 13:39 Ur Specific [place] 1.013 (1.003-1.030) 05/20/22 13:39 Urine Protein 30 mg/dl mg/dL (Negative) 05/20/22 13:39 Urine Glucose (UA) Neg mg/dL (Negative) 05/20/22 13:39 Urine Ketones Neg mg/dL (Negative) 05/20/22 13:39 Urine Blood Neg (Negative) 05/20/22 13:39 Urine Nitrite Neg (Negative) 05/20/22 13:39 Urine Bilirubin Neg (Negative) 05/20/22 13:39 Urine Urobilinogen < 2.0 mg/dL (<2.0) 05/20/22 13:39 Ur Leukocyte Esterase Neg (Negative) 05/20/22 13:39 Urine WBC (Auto) 1.0 /HPF (0.0-6.0) 05/20/22 13:39 Urine RBC (Auto) < 1.0 /HPF (0.0-6.0) 05/20/22 13:39 U Epithel Cells (Auto) < 1.0 /HPF (0-13.0) 05/20/22 13:39 Pollard/IV: Voiding Method Toilet Active Medications - Current Medications Current Medications: Generic Name Dose Route Start Last Admin Trade Name Freq PRN Reason Stop Dose Admin Acetaminophen 650 mg 05/20/22 17:43 Acetaminophen 325 Mg Tab PO Q4H PRN Pain MILD(1-3)/Fever >100.5/FINE Atorvastatin Calcium 40 mg 05/20/22 22:00 05/21/22 00:16 Atorvastatin 40 Mg Tab PO 40 mg QHS [place] Administration Famotidine 20 mg 05/21/22 22:00 Famotidine 20 Mg Tab PO BID [place] Folic Acid 1 mg 05/20/22 18:00 05/21/22 10:10 Folic Acid 1 Mg Tab PO 1 mg QDAY [place] Administration Heparin Sodium (Porcine) 5,000 unit 05/20/22 22:00 05/21/22 10:10 Heparin 5,000 Unit/1 Ml Vial SUB-Q 5,000 unit Q12HR [place] Administration Dextrose/Sodium Chloride 1,000 mls @ 100 mls/hr 05/20/22 18:00 05/21/22 17:28 D5ns IV 100 mls/hr DIRECT [place] Administration Levetiracetam 750 mg/ Dextrose 107.5 mls @ 400 mls/hr 05/20/22 19:00 05/21/22 10:11 IV 400 mls/hr Q12HR [place] Administration Lisinopril 20 mg 05/20/22 18:00 05/21/22 17:28 Lisinopril 20 Mg Tab PO 20 mg Q24H [place] Administration Morphine Sulfate 2 mg 05/20/22 17:43 05/20/22 18:22 Morphine 2 Mg/1 Ml Inj IV 2 mg Q4H PRN Administration Pain, Moderate (4-6) Ondansetron HCl 4 mg 05/20/22 17:43 Ondansetron 4 Mg/2 Ml Inj IV Q8H PRN Nausea And Vomiting Sodium Chloride 10 ml 05/20/22 22:00 05/21/22 10:13 Sodium Chloride 0.9% 10 Ml Flush Syringe IV 10 ml BID [place] Administration Sodium Chloride 10 ml 05/20/22 17:43 Sodium Chloride 0.9% 10 Ml Flush Syringe IV PRN PRN LINE FLUSH Trazodone HCl 100 mg 05/20/22 22:00 05/21/22 00:16 Trazodone 50 Mg Tab PO 100 mg QHS [facility] Administration
[2022-05-21] MEDS: FAMOTIDINE 20 MG TAB PO SCH (21:57)
[2022-05-22] MEDS ORDERED: LORazepam 2 MG/ML VIAL IV NR (09:06)
[2022-05-22] MEDS ORDERED: levETIRAcetam 500 MG TAB PO SCH (10:00)
[2022-05-22] MEDS: HEPARIN 5,000 UNIT/1 ML VIAL SUB-Q SCH ×2 (10:02→21:04)
[2022-05-22] MEDS: levETIRAcetam 500 MG/5 ML ORAL LIQD PO SCH ×2 (10:04→21:05)
[2022-05-22] MEDS: FAMOTIDINE 20 MG TAB PO SCH ×2 (10:05→21:05)
[2022-05-22] MEDS: FOLIC ACID 1 MG TAB PO SCH (10:05)
--- NOTE | 2022-05-22 13:44 | Magnetic Resonance Report ---
MRI BRAIN 05/22/2022 INDICATION / CLINICAL INFORMATION: confusion, UNSTEADY GAIT. TECHNIQUE: Multiplanar, multisequence MR images of the brain were obtained. COMPARISON: None available. FINDINGS: BRAIN / INTRACRANIAL CONTENTS: Unenhanced MR images of the brain were obtained. There is moderate patient motion artifact present on all of these images. There is no evidence of acute abnormality. Ventricles and sulci are prominent in size, consistent wit h prominent age-related atrophic change. Extensive chronic white matter T2 weighted hyperintensity is present in the periventricular and deep white matter throughout the cerebral hemispheric white matter. There is no evidence of acute ischemic injury, hemorrhage, or mass. There are no abnormal extra-axial fluid collections. EXTRACRANIAL: Unremarkable CRANIOCERVICAL JUNCTION: No significant abnormality. VASCULAR FLOW-VOIDS: No significant abnormality. IMPRESSION: No acute abnormality. Prominent chronic and age-related changes. Signer Name: Jose Garcia MD Signed: 05/22/2022 1:40 PM Workstation Name: [id number]
--- NOTE | 2022-05-22 17:20 | Progress Note ---
Assessment and Plan Assessment and plan: Assessment and plan: -- Acute metabolic encephalopathy Secondary to possible generalized tonic clonic seizures Continue Keppra at lower dose recommended by neurology Seizure precautions, neuro work-up is in progress -- New onset seizure Patient initiated on IV Keppra Seizure precautions, MRI brain, EEG Do not drive until cleared by neurology or primary care physician Partly probably alcohol related CT head without contrast; no acute intracranial abnormality or hemorrhage noted MRI brain; no acute abnormality noted, prominent chronic and age-related changes, no acute ischemic injury, hemorrhage or mass -- EtOH dependence Counseling done strongly advised to quit alcohol intake Advised to seek alcohol rehabilitation Closely monitor for any alcohol withdrawal symptoms And initiate CIWA protocol -- Hypertension Moderate control Continue current antihypertensives As needed medications -- Hyperlipidemia Continuous Lipitor Low-cholesterol diet -- Depression Continue trazodone and supportive care -- DVT prophylaxis Subcu heparin --GI prophylaxis; Pepcid Advance Directives: Yes (Full code) VTE prophylaxis?: Chemical Plan of care discussed with patient/family: Yes --Advance care planning Disease education conducted, care plan discussed, palpable diagnosis discussed prognosis discussed and patient acknowledged understanding with care plan. +30 minutes. Closely monitor the patient and adjust the management as needed Physical therapy and Occupational Therapy Possible placement if no improvement Plan of care reviewed with the patient his nurse and case management 05/22/2022; patient is severely confused and agitated CT head without contrast and MRI brain negative for acute abnormality Patient is on 250 mg of Keppra twice a day, no new episodes of seizures Neurology evaluation recommendation noted and appreciated Follow-up PT OT eval History Interval history: I have seen and examined the patient at the bedside Patient's chart and medications reviewed Patient is severely encephalopathic, confused and slightly agitated No new episodes of seizures Vital signs noted Hospitalist Physical - Constitutional Vitals: Temp Pulse Resp BP Pulse Ox 99.1 F 58 L 18 150/66 96 05/21/22 21:51 05/21/22 21:51 05/21/22 21:51 05/21/22 21:51 05/21/22 22:00 General appearance: Present: no acute distress, well-nourished - EENT Eyes: Present: PERRL, EOM intact - Neck Neck: Present: supple, normal ROM - Respiratory Respiratory effort: normal Respiratory: bilateral: diminished, negative: rales, rhonchi, wheezing - Cardiovascular Rhythm: regular Heart Sounds: Present: S1 & S2 - Extremities Extremities: no ischemia, No edema - Abdominal General gastrointestinal: soft, non-tender, non-distended, normal bowel sounds - Integumentary Integumentary: Present: clear, warm - Psychiatric Psychiatric: appropriate mood/affect, cooperative - Neurologic Neurologic: CNII-XII intact, moves all extremities HEART Score - HEART Score Risk factors: 1-2 risk factors Troponin: < normal limit - Critical Actions Critical Actions: 0-3 pts:0.9-1.7%risk of adverse cardiac event.Candidate for discharge Results - Labs CBC & Chem 7: 05/21/22 05:18 05/21/22 05:18 Labs: Laboratory Last Values WBC 10.7 K/mm3 (4.5-11.0) 05/21/22 05:18 RBC 4.08 M/mm3 (3.65-5.03) 05/21/22 05:18 Hgb 13.3 gm/dl (11.8-15.2) 05/21/22 05:18 Hct 40.1 % (35.5-45.6) 05/21/22 05:18 MCV 98 fl (84-94) H 05/21/22 05:18 MCH 33 pg (28-32) H 05/21/22 05:18 MCHC 33 % (32-34) 05/21/22 05:18 RDW 13.0 % (13.2-15.2) L 05/21/22 05:18 Plt Count 181 K/mm3 (140-440) D 05/21/22 05:18 Lymph % (Auto) 15.8 % (13.4-35.0) 05/21/22 05:18 [place] % (Auto) 4.8 % (0.0-7.3) 05/21/22 05:18 Eos % (Auto) 2.8 % (0.0-4.3) 05/21/22 05:18 Baso % (Auto) 1.1 % (0.0-1.8) 05/21/22 05:18 Lymph # (Auto) 1.7 K/mm3 (1.2-5.4) 05/21/22 05:18 [place] # (Auto) 0.5 K/mm3 (0.0-0.8) 05/21/22 05:18 Eos # (Auto) 0.3 K/mm3 (0.0-0.4) 05/21/22 05:18 Baso # (Auto) 0.1 K/mm3 (0.0-0.1) 05/21/22 05:18 Seg Neutrophils % 75.5 % (40.0-70.0) H 05/21/22 05:18 Seg Neutrophils # 8.1 K/mm3 (1.8-7.7) H 05/21/22 05:18 PT 12.5 Sec. (12.2-14.9) 05/20/22 10:36 INR 0.85 (0.87-1.13) L 05/20/22 10:36 APTT 20.0 Sec. (24.2-36.6) L 05/20/22 10:36 Sodium 142 mmol/L (137-145) D 05/21/22 05:18 Potassium 3.7 mmol/L (3.6-5.0) 05/21/22 05:18 Chloride 108.0 mmol/L (98-107) H 05/21/22 05:18 Carbon Dioxide 22 mmol/L (22-30) 05/21/22 05:18 Anion Gap 16 mmol/L 05/21/22 05:18 BUN 9 mg/dL (9-20) 05/21/22 05:18 Creatinine 0.7 mg/dL (0.8-1.3) L 05/21/22 05:18 Estimated GFR > 60 ml/min 05/21/22 05:18 BUN/Creatinine Ratio 13 % 05/21/22 05:18 Glucose 122 mg/dL (75-100) H 05/21/22 05:18 Lactic Acid 1.70 mmol/L (0.7-2.0) 05/20/22 17:24 Calcium 8.9 mg/dL (8.4-10.2) 05/21/22 05:18 Total Bilirubin 0.50 mg/dL (0.1-1.2) 05/21/22 05:18 AST 22 units/L (5-40) 05/21/22 05:18 ALT 25 units/L (7-56) 05/21/22 05:18 Alkaline Phosphatase 61 units/L (35-129) 05/21/22 05:18 Total Protein 6.4 g/dL (6.3-8.2) 05/21/22 05:18 Albumin 3.8 g/dL (3.9-5) L 05/21/22 05:18 Albumin/Globulin Ratio 1.5 % 05/21/22 05:18 TSH 2.440 mlU/mL (0.270-4.200) 05/20/22 10:36 Free T4 1.19 ng/dL (0.76-1.46) 05/20/22 10:36 Urine Color Yellow (Yellow) 05/20/22 13:39 Urine Turbidity Clear (Clear) 05/20/22 13:39 Urine pH 7.0 (5.0-7.0) 05/20/22 13:39 Ur Specific [place] 1.013 (1.003-1.030) 05/20/22 13:39 Urine Protein 30 mg/dl mg/dL (Negative) 05/20/22 13:39 Urine Glucose (UA) Neg mg/dL (Negative) 05/20/22 13:39 Urine Ketones Neg mg/dL (Negative) 05/20/22 13:39 Urine Blood Neg (Negative) 05/20/22 13:39 Urine Nitrite Neg (Negative) 05/20/22 13:39 Urine Bilirubin Neg (Negative) 05/20/22 13:39 Urine Urobilinogen < 2.0 mg/dL (<2.0) 05/20/22 13:39 Ur Leukocyte Esterase Neg (Negative) 05/20/22 13:39 Urine WBC (Auto) 1.0 /HPF (0.0-6.0) 05/20/22 13:39 Urine RBC (Auto) < 1.0 /HPF (0.0-6.0) 05/20/22 13:39 U Epithel Cells (Auto) < 1.0 /HPF (0-13.0) 05/20/22 13:39 Pollard/IV: Voiding Method Toilet Active Medications - Current Medications Current Medications: Generic Name Dose Route Start Last Admin Trade Name Freq PRN Reason Stop Dose Admin Acetaminophen 650 mg 05/20/22 17:43 Acetaminophen 325 Mg Tab PO Q4H PRN Pain MILD(1-3)/Fever >100.5/FINE Atorvastatin Calcium 40 mg 05/20/22 22:00 05/21/22 21:57 Atorvastatin 40 Mg Tab PO 40 mg QHS [place] Administration Famotidine 20 mg 05/21/22 22:00 05/22/22 10:05 Famotidine 20 Mg Tab PO 20 mg BID [place] Administration Folic Acid 1 mg 05/20/22 18:00 05/22/22 10:05 Folic Acid 1 Mg Tab PO 1 mg QDAY [place] Administration Heparin Sodium (Porcine) 5,000 unit 05/20/22 22:00 05/22/22 10:02 Heparin 5,000 Unit/1 Ml Vial SUB-Q 5,000 unit Q12HR [place] Administration Levetiracetam 250 mg 05/22/22 10:00 05/22/22 10:04 Levetiracetam 500 Mg/5 Ml Oral Liqd PO 250 mg BID [place] Administration Lisinopril 20 mg 05/20/22 18:00 05/21/22 17:28 Lisinopril 20 Mg Tab PO 20 mg Q24H [place] Administration Morphine Sulfate 2 mg 05/20/22 17:43 05/20/22 18:22 Morphine 2 Mg/1 Ml Inj IV 2 mg Q4H PRN Administration Pain, Moderate (4-6) Ondansetron HCl 4 mg 05/20/22 17:43 Ondansetron 4 Mg/2 Ml Inj IV Q8H PRN Nausea And Vomiting Sodium Chloride 10 ml 05/20/22 22:00 05/21/22 21:59 Sodium Chloride 0.9% 10 Ml Flush Syringe IV 10 ml BID [place] Administration Sodium Chloride 10 ml 05/20/22 17:43 Sodium Chloride 0.9% 10 Ml Flush Syringe IV PRN PRN LINE FLUSH Trazodone HCl 100 mg 05/20/22 22:00 05/21/22 21:57 Trazodone 50 Mg Tab PO 100 mg QHS [place] Administration
[2022-05-22] MEDS: LISINOPRIL 20 MG TAB PO SCH (17:56)
--- NOTE | 2022-05-22 18:51 | Electrocardiograph Report ---
[facility] Test Date: 2022-05-20 Test Time: 09:26:52 Pat Name: JAZ FRIEDMAN Department: Room: A378 1 Gender: M [employer]: ejremías : 1950 Requested By: DAVID SAAB Order Number: [id number] Reading MD: Kalyani Barksdale Measurements Intervals [place] Rate: 72 P: 71 MT: 177 QRS: 58 QRSD: 97 T: 58 QT: 410 QTc: 448 Interpretive Statements Sinus rhythm Atrial premature complex Probable LVH with secondary repol abnrm No previous ECG available for comparison Electronically Signed On 05-22-2022 18:50:35 EDT by Kalyani Barksdale
[2022-05-22] MEDS: traZODone 50 MG TAB PO SCH (21:04)
[2022-05-23] MEDS: levETIRAcetam 500 MG/5 ML ORAL LIQD PO SCH ×2 (09:45→22:07)
[2022-05-23] MEDS: FOLIC ACID 1 MG TAB PO SCH (09:46)
[2022-05-23] MEDS: FAMOTIDINE 20 MG TAB PO SCH ×2 (09:48→22:08)
[2022-05-23] MEDS: HEPARIN 5,000 UNIT/1 ML VIAL SUB-Q SCH ×2 (09:48→22:08)
--- NOTE | 2022-05-23 15:59 | Progress Note ---
Assessment and Plan Assessment and plan: -- Acute metabolic encephalopathy Secondary to possible generalized tonic clonic seizures Continue Keppra at lower dose recommended by neurology Seizure precautions, neuro work-up is in progress -- New onset seizure Patient initiated on IV Keppra Seizure precautions, MRI brain, EEG Do not drive until cleared by neurology or primary care physician Partly probably alcohol related CT head without contrast; no acute intracranial abnormality or hemorrhage noted MRI brain; no acute abnormality noted, prominent chronic and age-related changes, no acute ischemic injury, hemorrhage or mass -- EtOH dependence Counseling done strongly advised to quit alcohol intake Advised to seek alcohol rehabilitation Closely monitor for any alcohol withdrawal symptoms And initiate CIWA protocol -- Hypertension Moderate control Continue current antihypertensives As needed medications -- Hyperlipidemia Continuous Lipitor Low-cholesterol diet -- Depression Continue trazodone and supportive care -- DVT prophylaxis Subcu heparin --GI prophylaxis; Pepcid Advance Directives: Yes (Full code) VTE prophylaxis?: Chemical Plan of care discussed with patient/family: Yes --Advance care planning Disease education conducted, care plan discussed, palpable diagnosis discussed prognosis discussed and patient acknowledged understanding with care plan. +30 minutes. Closely monitor the patient and adjust the management as needed Physical therapy and Occupational Therapy Possible placement if no improvement Plan of care reviewed with the patient his nurse and case management 05/22/2022; patient is severely confused and agitated CT head without contrast and MRI brain negative for acute abnormality Patient is on 250 mg of Keppra twice a day, no new episodes of seizures Neurology evaluation recommendation noted and appreciated Follow-up PT OT eval History Interval history: I have seen and examined at the bedside Patient's chart and medications reviewed Patient did not have any new episodes of seizures Patient feels better alert and awake responding to simple questions appropriately Vital signs noted Hospitalist Physical - Constitutional Vitals: Temp Pulse Resp BP Pulse Ox 98.5 F 64 20 122/75 96 05/23/22 12:12 05/23/22 12:12 05/23/22 12:12 05/23/22 12:12 05/23/22 12:12 General appearance: Present: no acute distress, well-nourished - EENT Eyes: Present: PERRL, EOM intact - Neck Neck: Present: supple, normal ROM - Respiratory Respiratory effort: normal Respiratory: bilateral: diminished, negative: rales, rhonchi, wheezing - Cardiovascular Rhythm: regular Heart Sounds: Present: S1 & S2 - Extremities Extremities: no ischemia, No edema - Abdominal General gastrointestinal: soft, non-tender, non-distended, normal bowel sounds - Integumentary Integumentary: Present: clear, warm - Psychiatric Psychiatric: appropriate mood/affect, cooperative - Neurologic Neurologic: CNII-XII intact, moves all extremities HEART Score - HEART Score Risk factors: 1-2 risk factors Troponin: < normal limit - Critical Actions Critical Actions: 0-3 pts:0.9-1.7%risk of adverse cardiac event.Candidate for discharge Results - Labs CBC & Chem 7: 05/21/22 05:18 05/21/22 05:18 Labs: Laboratory Last Values WBC 10.7 K/mm3 (4.5-11.0) 05/21/22 05:18 RBC 4.08 M/mm3 (3.65-5.03) 05/21/22 05:18 Hgb 13.3 gm/dl (11.8-15.2) 05/21/22 05:18 Hct 40.1 % (35.5-45.6) 05/21/22 05:18 MCV 98 fl (84-94) H 05/21/22 05:18 MCH 33 pg (28-32) H 05/21/22 05:18 MCHC 33 % (32-34) 05/21/22 05:18 RDW 13.0 % (13.2-15.2) L 05/21/22 05:18 Plt Count 181 K/mm3 (140-440) D 05/21/22 05:18 Lymph % (Auto) 15.8 % (13.4-35.0) 05/21/22 05:18 [place] % (Auto) 4.8 % (0.0-7.3) 05/21/22 05:18 Eos % (Auto) 2.8 % (0.0-4.3) 05/21/22 05:18 Baso % (Auto) 1.1 % (0.0-1.8) 05/21/22 05:18 Lymph # (Auto) 1.7 K/mm3 (1.2-5.4) 05/21/22 05:18 [place] # (Auto) 0.5 K/mm3 (0.0-0.8) 05/21/22 05:18 Eos # (Auto) 0.3 K/mm3 (0.0-0.4) 05/21/22 05:18 Baso # (Auto) 0.1 K/mm3 (0.0-0.1) 05/21/22 05:18 Seg Neutrophils % 75.5 % (40.0-70.0) H 05/21/22 05:18 Seg Neutrophils # 8.1 K/mm3 (1.8-7.7) H 05/21/22 05:18 PT 12.5 Sec. (12.2-14.9) 05/20/22 10:36 INR 0.85 (0.87-1.13) L 05/20/22 10:36 APTT 20.0 Sec. (24.2-36.6) L 05/20/22 10:36 Sodium 142 mmol/L (137-145) D 05/21/22 05:18 Potassium 3.7 mmol/L (3.6-5.0) 05/21/22 05:18 Chloride 108.0 mmol/L (98-107) H 05/21/22 05:18 Carbon Dioxide 22 mmol/L (22-30) 05/21/22 05:18 Anion Gap 16 mmol/L 05/21/22 05:18 BUN 9 mg/dL (9-20) 05/21/22 05:18 Creatinine 0.7 mg/dL (0.8-1.3) L 05/21/22 05:18 Estimated GFR > 60 ml/min 05/21/22 05:18 BUN/Creatinine Ratio 13 % 05/21/22 05:18 Glucose 122 mg/dL (75-100) H 05/21/22 05:18 Lactic Acid 1.70 mmol/L (0.7-2.0) 05/20/22 17:24 Calcium 8.9 mg/dL (8.4-10.2) 05/21/22 05:18 Total Bilirubin 0.50 mg/dL (0.1-1.2) 05/21/22 05:18 AST 22 units/L (5-40) 05/21/22 05:18 ALT 25 units/L (7-56) 05/21/22 05:18 Alkaline Phosphatase 61 units/L (35-129) 05/21/22 05:18 Total Protein 6.4 g/dL (6.3-8.2) 05/21/22 05:18 Albumin 3.8 g/dL (3.9-5) L 05/21/22 05:18 Albumin/Globulin Ratio 1.5 % 05/21/22 05:18 TSH 2.440 mlU/mL (0.270-4.200) 05/20/22 10:36 Free T4 1.19 ng/dL (0.76-1.46) 05/20/22 10:36 Urine Color Yellow (Yellow) 05/20/22 13:39 Urine Turbidity Clear (Clear) 05/20/22 13:39 Urine pH 7.0 (5.0-7.0) 05/20/22 13:39 Ur Specific [place] 1.013 (1.003-1.030) 05/20/22 13:39 Urine Protein 30 mg/dl mg/dL (Negative) 05/20/22 13:39 Urine Glucose (UA) Neg mg/dL (Negative) 05/20/22 13:39 Urine Ketones Neg mg/dL (Negative) 05/20/22 13:39 Urine Blood Neg (Negative) 05/20/22 13:39 Urine Nitrite Neg (Negative) 05/20/22 13:39 Urine Bilirubin Neg (Negative) 05/20/22 13:39 Urine Urobilinogen < 2.0 mg/dL (<2.0) 05/20/22 13:39 Ur Leukocyte Esterase Neg (Negative) 05/20/22 13:39 Urine WBC (Auto) 1.0 /HPF (0.0-6.0) 05/20/22 13:39 Urine RBC (Auto) < 1.0 /HPF (0.0-6.0) 05/20/22 13:39 U Epithel Cells (Auto) < 1.0 /HPF (0-13.0) 05/20/22 13:39 Pollard/IV: Voiding Method Toilet Active Medications - Current Medications Current Medications: Generic Name Dose Route Start Last Admin Trade Name Freq PRN Reason Stop Dose Admin Acetaminophen 650 mg 05/20/22 17:43 Acetaminophen 325 Mg Tab PO Q4H PRN Pain MILD(1-3)/Fever >100.5/FINE Atorvastatin Calcium 40 mg 05/20/22 22:00 05/22/22 21:05 Atorvastatin 40 Mg Tab PO 40 mg QHS [place] Administration Famotidine 20 mg 05/21/22 22:00 05/23/22 09:48 Famotidine 20 Mg Tab PO 20 mg BID [place] Administration Folic Acid 1 mg 05/20/22 18:00 05/23/22 09:46 Folic Acid 1 Mg Tab PO 1 mg QDAY [place] Administration Heparin Sodium (Porcine) 5,000 unit 05/20/22 22:00 05/23/22 09:48 Heparin 5,000 Unit/1 Ml Vial SUB-Q 5,000 unit Q12HR [place] Administration Levetiracetam 250 mg 05/22/22 10:00 05/23/22 09:45 Levetiracetam 500 Mg/5 Ml Oral Liqd PO 250 mg BID [place] Administration Lisinopril 20 mg 05/20/22 18:00 05/22/22 17:56 Lisinopril 20 Mg Tab PO 20 mg Q24H [place] Administration Morphine Sulfate 2 mg 05/20/22 17:43 05/20/22 18:22 Morphine 2 Mg/1 Ml Inj IV 2 mg Q4H PRN Administration Pain, Moderate (4-6) Ondansetron HCl 4 mg 05/20/22 17:43 Ondansetron 4 Mg/2 Ml Inj IV Q8H PRN Nausea And Vomiting Sodium Chloride 10 ml 05/20/22 22:00 05/23/22 09:47 Sodium Chloride 0.9% 10 Ml Flush Syringe IV 10 ml BID [place] Administration Sodium Chloride 10 ml 05/20/22 17:43 Sodium Chloride 0.9% 10 Ml Flush Syringe IV PRN PRN LINE FLUSH Trazodone HCl 100 mg 05/20/22 22:00 05/22/22 21:04 Trazodone 50 Mg Tab PO 100 mg QHS [place] Administration
[2022-05-23] MEDS: LISINOPRIL 20 MG TAB PO SCH (18:29)
[2022-05-23] MEDS: traZODone 50 MG TAB PO SCH (22:07)
[2022-05-24] MEDS: levETIRAcetam 500 MG/5 ML ORAL LIQD PO SCH ×2 (09:05→22:27)
[2022-05-24] MEDS: FAMOTIDINE 20 MG TAB PO SCH ×2 (09:05→22:27)
[2022-05-24] MEDS: FOLIC ACID 1 MG TAB PO SCH (09:05)
[2022-05-24] MEDS: HEPARIN 5,000 UNIT/1 ML VIAL SUB-Q SCH ×2 (09:06→22:27)
--- NOTE | 2022-05-24 10:20 | Progress Note ---
Assessment and Plan Assessment and plan: -- Acute metabolic encephalopathy Secondary to possible generalized tonic clonic seizures Continue Keppra at lower dose recommended by neurology Seizure precautions, neuro work-up is in progress -- New onset seizure Patient initiated on IV Keppra Seizure precautions, MRI brain, EEG Do not drive until cleared by neurology or primary care physician Partly probably alcohol related CT head without contrast; no acute intracranial abnormality or hemorrhage noted MRI brain; no acute abnormality noted, prominent chronic and age-related changes, no acute ischemic injury, hemorrhage or mass -- EtOH dependence Counseling done strongly advised to quit alcohol intake Advised to seek alcohol rehabilitation Closely monitor for any alcohol withdrawal symptoms And initiate CIWA protocol -- Hypertension Moderate control Continue current antihypertensives As needed medications -- Hyperlipidemia Continuous Lipitor Low-cholesterol diet -- Depression Continue trazodone and supportive care -- DVT prophylaxis Subcu heparin --GI prophylaxis; Pepcid Advance Directives: Yes (Full code) VTE prophylaxis?: Chemical Plan of care discussed with patient/family: Yes --Advance care planning Disease education conducted, care plan discussed, palpable diagnosis discussed prognosis discussed and patient acknowledged understanding with care plan. +30 minutes. Closely monitor the patient and adjust the management as needed Physical therapy and Occupational Therapy Possible placement if no improvement Plan of care reviewed with the patient his nurse and case management 05/22/2022; patient is severely confused and agitated CT head without contrast and MRI brain negative for acute abnormality Patient is on 250 mg of Keppra twice a day, no new episodes of seizures Neurology evaluation recommendation noted and appreciated Follow-up PT OT eval Hospitalist Physical - Constitutional Vitals: Temp Pulse Resp BP Pulse Ox 98.2 F 52 L 16 141/74 95 05/24/22 04:00 05/24/22 04:00 05/24/22 04:00 05/24/22 04:00 05/24/22 04:00 General appearance: Present: no acute distress, well-nourished HEART Score - HEART Score Risk factors: 1-2 risk factors Troponin: < normal limit - Critical Actions Critical Actions: 0-3 pts:0.9-1.7%risk of adverse cardiac event.Candidate for discharge Results - Labs CBC & Chem 7: 05/21/22 05:18 05/21/22 05:18 Labs: Laboratory Last Values WBC 10.7 K/mm3 (4.5-11.0) 05/21/22 05:18 RBC 4.08 M/mm3 (3.65-5.03) 05/21/22 05:18 Hgb 13.3 gm/dl (11.8-15.2) 05/21/22 05:18 Hct 40.1 % (35.5-45.6) 05/21/22 05:18 MCV 98 fl (84-94) H 05/21/22 05:18 MCH 33 pg (28-32) H 05/21/22 05:18 MCHC 33 % (32-34) 05/21/22 05:18 RDW 13.0 % (13.2-15.2) L 05/21/22 05:18 Plt Count 181 K/mm3 (140-440) D 05/21/22 05:18 Lymph % (Auto) 15.8 % (13.4-35.0) 05/21/22 05:18 [place] % (Auto) 4.8 % (0.0-7.3) 05/21/22 05:18 Eos % (Auto) 2.8 % (0.0-4.3) 05/21/22 05:18 Baso % (Auto) 1.1 % (0.0-1.8) 05/21/22 05:18 Lymph # (Auto) 1.7 K/mm3 (1.2-5.4) 05/21/22 05:18 [place] # (Auto) 0.5 K/mm3 (0.0-0.8) 05/21/22 05:18 Eos # (Auto) 0.3 K/mm3 (0.0-0.4) 05/21/22 05:18 Baso # (Auto) 0.1 K/mm3 (0.0-0.1) 05/21/22 05:18 Seg Neutrophils % 75.5 % (40.0-70.0) H 05/21/22 05:18 Seg Neutrophils # 8.1 K/mm3 (1.8-7.7) H 05/21/22 05:18 PT 12.5 Sec. (12.2-14.9) 05/20/22 10:36 INR 0.85 (0.87-1.13) L 05/20/22 10:36 APTT 20.0 Sec. (24.2-36.6) L 05/20/22 10:36 Sodium 142 mmol/L (137-145) D 05/21/22 05:18 Potassium 3.7 mmol/L (3.6-5.0) 05/21/22 05:18 Chloride 108.0 mmol/L (98-107) H 05/21/22 05:18 Carbon Dioxide 22 mmol/L (22-30) 05/21/22 05:18 Anion Gap 16 mmol/L 05/21/22 05:18 BUN 9 mg/dL (9-20) 05/21/22 05:18 Creatinine 0.7 mg/dL (0.8-1.3) L 05/21/22 05:18 Estimated GFR > 60 ml/min 05/21/22 05:18 BUN/Creatinine Ratio 13 % 05/21/22 05:18 Glucose 122 mg/dL (75-100) H 05/21/22 05:18 Lactic Acid 1.70 mmol/L (0.7-2.0) 05/20/22 17:24 Calcium 8.9 mg/dL (8.4-10.2) 05/21/22 05:18 Total Bilirubin 0.50 mg/dL (0.1-1.2) 05/21/22 05:18 AST 22 units/L (5-40) 05/21/22 05:18 ALT 25 units/L (7-56) 05/21/22 05:18 Alkaline Phosphatase 61 units/L (35-129) 05/21/22 05:18 Total Protein 6.4 g/dL (6.3-8.2) 05/21/22 05:18 Albumin 3.8 g/dL (3.9-5) L 05/21/22 05:18 Albumin/Globulin Ratio 1.5 % 05/21/22 05:18 TSH 2.440 mlU/mL (0.270-4.200) 05/20/22 10:36 Free T4 1.19 ng/dL (0.76-1.46) 05/20/22 10:36 Urine Color Yellow (Yellow) 05/20/22 13:39 Urine Turbidity Clear (Clear) 05/20/22 13:39 Urine pH 7.0 (5.0-7.0) 05/20/22 13:39 Ur Specific [place] 1.013 (1.003-1.030) 05/20/22 13:39 Urine Protein 30 mg/dl mg/dL (Negative) 05/20/22 13:39 Urine Glucose (UA) Neg mg/dL (Negative) 05/20/22 13:39 Urine Ketones Neg mg/dL (Negative) 05/20/22 13:39 Urine Blood Neg (Negative) 05/20/22 13:39 Urine Nitrite Neg (Negative) 05/20/22 13:39 Urine Bilirubin Neg (Negative) 05/20/22 13:39 Urine Urobilinogen < 2.0 mg/dL (<2.0) 05/20/22 13:39 Ur Leukocyte Esterase Neg (Negative) 05/20/22 13:39 Urine WBC (Auto) 1.0 /HPF (0.0-6.0) 05/20/22 13:39 Urine RBC (Auto) < 1.0 /HPF (0.0-6.0) 05/20/22 13:39 U Epithel Cells (Auto) < 1.0 /HPF (0-13.0) 05/20/22 13:39 Pollard/IV: Voiding Method Toilet Active Medications - Current Medications Current Medications: Generic Name Dose Route Start Last Admin Trade Name Freq PRN Reason Stop Dose Admin Acetaminophen 650 mg 05/20/22 17:43 Acetaminophen 325 Mg Tab PO Q4H PRN Pain MILD(1-3)/Fever >100.5/FINE Atorvastatin Calcium 40 mg 05/20/22 22:00 05/23/22 22:08 Atorvastatin 40 Mg Tab PO 40 mg QHS [place] Administration Famotidine 20 mg 05/21/22 22:00 05/24/22 09:05 Famotidine 20 Mg Tab PO 20 mg BID [place] Administration Folic Acid 1 mg 05/20/22 18:00 05/24/22 09:05 Folic Acid 1 Mg Tab PO 1 mg QDAY [place] Administration Heparin Sodium (Porcine) 5,000 unit 05/20/22 22:00 05/24/22 09:06 Heparin 5,000 Unit/1 Ml Vial SUB-Q 5,000 unit Q12HR [place] Administration Levetiracetam 250 mg 05/22/22 10:00 05/24/22 09:05 Levetiracetam 500 Mg/5 Ml Oral Liqd PO 250 mg BID [place] Administration Lisinopril 20 mg 05/20/22 18:00 05/23/22 18:29 Lisinopril 20 Mg Tab PO 20 mg Q24H [place] Administration Morphine Sulfate 2 mg 05/20/22 17:43 05/20/22 18:22 Morphine 2 Mg/1 Ml Inj IV 2 mg Q4H PRN Administration Pain, Moderate (4-6) Ondansetron HCl 4 mg 05/20/22 17:43 Ondansetron 4 Mg/2 Ml Inj IV Q8H PRN Nausea And Vomiting Sodium Chloride 10 ml 05/20/22 22:00 05/24/22 09:05 Sodium Chloride 0.9% 10 Ml Flush Syringe IV 10 ml BID [place] Administration Sodium Chloride 10 ml 05/20/22 17:43 Sodium Chloride 0.9% 10 Ml Flush Syringe IV PRN PRN LINE FLUSH Trazodone HCl 100 mg 05/20/22 22:00 05/23/22 22:07 Trazodone 50 Mg Tab PO 100 mg QHS [place] Administration
--- NOTE | 2022-05-24 14:12 | Discharge Summary ---
Providers - Providers Date of Admission: 05/20/22 17:43 Date of discharge: 05/24/22 Attending physician: KAITLIN BETTENCOURT 05/20/22 17:43 Consult to Physician [CONS] Routine Comment: Consulting Provider: SHELLEY HADDAD Physician Instructions: Reason For Exam: New onset seizures 05/22/22 09:35 Physical Therapy Evaluation and Treat [CONS] Routine Comment: Reason For Exam: Eval and treat 05/22/22 12:06 Occupational Therapy Evaluate and Treat [CONS] Routine Comment: Reason For Exam: Eval and treat Primary care physician: FLYNN FOSTER Hospitalization Condition: Stable Pertinent studies: CT head without contrast MRI brain without contrast reports as mentioned below Hospital course: -- Acute metabolic encephalopathy Secondary to possible generalized tonic clonic seizures Continue Keppra at lower dose recommended by neurology Seizure precautions, neuro work-up is in progress -- New onset seizure Patient initiated on IV Keppra Seizure precautions, MRI brain, EEG Do not drive until cleared by neurology or primary care physician Partly probably alcohol related CT head without contrast; no acute intracranial abnormality or hemorrhage noted MRI brain; no acute abnormality noted, prominent chronic and age-related changes, no acute ischemic injury, hemorrhage or mass -- EtOH dependence Counseling done strongly advised to quit alcohol intake Advised to seek alcohol rehabilitation Closely monitor for any alcohol withdrawal symptoms And initiate CIWA protocol -- Hypertension Moderate control Continue current antihypertensives As needed medications -- Hyperlipidemia Continuous Lipitor Low-cholesterol diet -- Depression Continue trazodone and supportive care --Ongoing tobacco use; Smoking cessation counseling done Risks and consequences and sequelae of long-term smoking explained to the patient He verbalized understanding Spent 15 minutes counseling the patient - DVT prophylaxis Subcu heparin --GI prophylaxis; Pepcid Patient is hemodynamically and clinically stable at discharge Disposition: 01 HOME / SELF CARE / HOMELESS Final Discharge Diagnosis (Prints w/discharge instructions): Acute metabolic encephalopathy. Improved. New onset seizures. Alcohol dependence. Hyper tension. Dyslipidemia. History of depression Time spent for discharge: 35 minutes Core Measure Documentation - Palliative Care Palliative Care/ Comfort Measures: Not Applicable - Core Measures Any of the following diagnoses?: none Exam - Constitutional Vitals: Temp Pulse Resp BP Pulse Ox 99.2 F 59 L 18 142/71 100 05/24/22 13:08 05/24/22 13:08 05/24/22 13:08 05/24/22 13:08 05/24/22 13:08 General appearance: Present: no acute distress, well-nourished - EENT Eyes: Present: PERRL, EOM intact - Neck Neck: Present: supple, normal ROM - Respiratory Respiratory effort: normal Respiratory: bilateral: diminished, negative: rales, rhonchi, wheezing - Cardiovascular Rhythm: regular Heart Sounds: Present: S1 & S2 - Extremities Extremities: no ischemia, No edema - Abdominal General gastrointestinal: Present: soft, non-tender, non-distended, normal bowel sounds - Integumentary Integumentary: Present: clear, warm - Musculoskeletal Musculoskeletal: strength equal bilaterally, generalized weakness - Psychiatric Psychiatric: appropriate mood/affect, cooperative, other (Hard of hearing) - Neurologic Neurologic: moves all extremities Plan Activity: advance as tolerated, no driving until cleared by PCP, fall precautions, other (Seizure precautions) Diet: regular Additional Instructions: Advised to follow private neurologist in 2 weeks. Advised to follow primary care physician in 1 to 2 weeks. Seizure prec autions. Do not drive until cleared by primary care physician or neurologist. If you have worsening symptoms contact MD or go to the nearest emergency room as needed. Strongly advised to comply with medications, diet, follow-up visits with physicians per schedule. Smoking cessation advised, nicotine patch as needed Follow up with: FLYNN FOSTER MD [Primary Care Provider] - 7 Days SHELLEY HADDAD MD [Staff Physician] - 14 Days Prescriptions: traZODone [Desyrel] 100 mg PO QHS #14 tablet Folic Acid [Folvite] 1 mg PO QDAY #30 tablet levETIRAcetam [Keppra TAB] 250 mg PO BID #60 Famotidine [Pepcid] 20 mg PO BID #30 tablet lisinopriL [Zestril TAB] 20 mg PO Q24H #30 tablet
[2022-05-24] MEDS: LISINOPRIL 20 MG TAB PO SCH (19:09)
[2022-05-24] MEDS: traZODone 50 MG TAB PO SCH (22:26)
[2022-05-25 05:53] VITALS: BP 131/76
== END 2022-05-25 08:50 | disposition home or self-care (01) | DRG 100 ==
LOC: ED 09:16 → EDBD 17:43 → 3A 17:43
PROVIDERS: ADMIT Internal Medicine; ATTEND Internal Medicine
DX: G40.509 Epileptic seizures related to external causes, not intractable, without status epilepticus (principal); J18.9 Pneumonia, unspecified organism; F10.20 Alcohol dependence, uncomplicated; I10 Essential (primary) hypertension; E78.5 Hyperlipidemia, unspecified; F32.9 Major depressive disorder, single episode, unspecified; F10.21 Alcohol dependence, in remission; E78.2 Mixed hyperlipidemia; Z82.49 Family history of ischemic heart disease and other diseases of the circulatory system
CPT/HCPCS: 36415; 70450; 70551; 80053; 81001; 82140; 84439; 84443; 85025; 85610; 85730; 93005; 95819; G0378; J3490; J7060; J1644; J1953; J2060; J2270; J2543; J3370; J7030; J7042